=== PATIENT | male | born 1980 | race Caucasian/White ===

== ENCOUNTER 2020-06-30 09:38 | Outpatient (CLI) | payer OTHER | END 2020-06-30 09:47 | disposition home or self-care (01) | LOC: RAD 09:38 | PROVIDERS: ATTEND Orthopaedic Surgery | DX: M25.572 Pain in left ankle and joints of left foot (principal) ==

== ENCOUNTER 2024-09-04 14:03 | Outpatient (CLI) | payer OTHER | END 2024-09-04 14:13 | disposition home or self-care (01) | LOC: RAD 14:03 | PROVIDERS: ATTEND Orthopaedic Surgery | DX: M25.571 Pain in right ankle and joints of right foot (principal) ==